=== PATIENT | female | born 1950 | race Caucasian/White ===

== ENCOUNTER 2017-10-04 06:13 | Inpatient (IN) ==
[2017-10-04] MEDS ORDERED: Lidocaine -MPF 2% 2 ML VIAL ONE (06:55)
[2017-10-04] MEDS ORDERED: Dexamethasone 4 MG/ML VIAL ONE (06:55)
[2017-10-04] MEDS ORDERED: *HR* Succinylcholine 200 MG/10 ML VIAL IVP ONE (06:55)
[2017-10-04] MEDS ORDERED: Lidocaine -MPF 4% 5 ML AMPUL ONE (06:55)
[2017-10-04] MEDS ORDERED: Ondansetron 4 MG/2 ML VIAL ONE (06:55)
[2017-10-04] MEDS ORDERED: *HR* FentaNYL (PF) 100 MCG/2 ML VIAL ONE ×2 (07:00→08:17)
[2017-10-04] MEDS ORDERED: *HR* Propofol 200 MG/20 ML VIAL IVP ONE (07:00)
[2017-10-04] MEDS ORDERED: *HR* Midazolam HCl 2 MG/2 ML VIAL ONE (07:00)
--- NOTE | 2017-10-04 07:04 | Urology History & Physical ---
Date of Encounter: 10/04/17 Time of Encounter: 07:02 Assessment and Plan (1) Uterine prolapse Current Visit: Yes Status: Acute proceed with planned case. all questions answered. History of Present Illness Chief complaint: prolapse HPI: Ms. Aponte is a 67 year old female here for hyst and ASCP. no change in condition. Past Med Surg Social Fam HX - Past Medical History Additional medical history: hematuria. Uterine prolapse - Past Surgical History Additional surgical history: gallbladder 2016. T&A. addendectomy. exploraratory. laser eye sx - Social History Smoking Status: Unknown if ever smoked Medications and Allergies 3 Allergy/AdvReac Type Severity Reaction Status Date / Time No Known Allergies Allergy Unverified 09/27/17 08:53 Review of Systems - Constitutional no fever(s) Exam Initial Vital Signs Temp Pulse Resp BP Pulse Ox 97.9 F 86 18 139/84 95 10/04/17 06:40 10/04/17 06:40 10/04/17 06:40 10/04/17 06:40 10/04/17 06:40 - General physical appearance Present: well developed, no distress - Neurologic Absent: disoriented, confused Urology Results - Labs All other labs normal.
[2017-10-04] MEDS ORDERED: LIDOCAINE 1% PF 2 ML AMPUL ONE (07:06)
[2017-10-04] MEDS ORDERED: CeFAZolin Syr 2,000MG/20 ML 2,000 MG/20 ML SYRINGE IVPB ONE (07:09)
[2017-10-04] MEDS ORDERED: Albuterol 2.5 MG/3 ML NEBULIZER IH ONE (07:10)
[2017-10-04] MEDS ORDERED: Albuterol 2.5 MG/3 ML NEBULIZER ONE (07:12)
[2017-10-04] MEDS ORDERED: Ringers Solution, Lactated 1,000 ML IVC SCH (07:15)
[2017-10-04] MEDS ORDERED: Scopolamine Patch 1.5 MG PATCH.TD72 TD ONE (07:27)
[2017-10-04] MEDS ORDERED: Acetaminophen IV 1,000 MG/100 ML INFUS..BTL ONE (07:34)
--- NOTE | 2017-10-04 07:39 | Anesthesia Evaluation PreOp ---
Date of Encounter: 10/04/17 Time of Encounter: 07:36 - Past History Planned Operation: Abd Supracervical Hysterectomy, ayden SPO, sacrocolpopexy Cardiac History: Denies any Significant Hx Pulmonary History: Asthma HORSE RACE STARTER History: Denies Any Significant HX Other Medical History: GERD (mild) Anesthesia History: Problems (PONV - responds to scop patch) Alcohol Use: none Drug use: none Medications and Allergies No Known Home Drugs 10/04/17 [History] 3 Allergy/AdvReac Type Severity Reaction Status Date / Time No Known Allergies Allergy Unverified 09/27/17 08:53 - Meds/Allergy Pre-op Review Medications Reviewed: Yes Allergies Reviewed: Yes Beta Blockers on Current Med List: No Anesthesia Results - Labs Laboratory Tests 09/27/17 09:00 WBC 8.2 Hgb 13.8 Hct 41.9 Plt Count 224 Anesthesia Exam Last Vital Signs Temp 97.9 F 10/04/17 06:40 Pulse 86 10/04/17 06:40 Resp 18 10/04/17 07:19 BP 139/84 10/04/17 07:19 Pulse Ox 95 10/04/17 07:19 Weight: 63 kg NPO (# of Hours): > 8 hrs - HEENT Pupil (Motor): Pupils equal, EOMI Mallampati: II Teeth: Normal Oral Opening: Greater than 3 - HORSE RACE STARTER LOC: Oriented - Cardiac Rhythm: Regular Murmur: None - Pulmonary Breath Sounds: bilateral Clear Respiratory Effort: Symmetrical Anesthesia Assess/Plan ASA Score: 3 Modified Whittemore Scale for Level of Consciousness: Cooperative, oriented, and tranquil Anesthetic Plan: General Monitoring Plan: Standard Monitors Recovery Plan: PACU
--- NOTE | 2017-10-04 07:41 | History & Physical Report ---
Date of Encounter: 10/04/17 Time of Encounter: 07:40 24 Hour HP Update - Instructions Instructions: If the History and Physical is less than 30 days old and was completed prior to A.M. admission and or procedure and has NOT been updated on calendar day of procedure please complete this update prior to performing procedure. - Update Patient reports changes in Medical Condition: No Changes in examination, assessment, or condition: No Changes in Medication: No Preop tests/diagnostics Reviewed: Yes Surgery Remains Indicated: Yes Consent for Planned Operative Procedure(s) Verified: Yes - Pre-Operative Checklist Preoperative Checklist Indicated: Yes Prophylactic Antibiotic Ordered: Yes Home Medications Include Beta Darlyn: No Beta Darlyn Taken Today (Day of Surgery): No Beta Darlyn Taken Yesterday (Day Prior to Surgery): No Is VTE Prophylaxis Indicated?: Yes
[2017-10-04] MEDS ORDERED: *HR* Labetalol 100 MG/20 ML MDV IVP PRN (08:38)
[2017-10-04] MEDS ORDERED: *HR* OxyCODONE Immed Rel 5 MG TABLET PO PRN (08:38)
[2017-10-04] MEDS ORDERED: *HR* Meperidine 25 MG/ML SYRINGE IVP PRN (08:38)
[2017-10-04] MEDS ORDERED: MORPHINE SUL Oral CONC 10 MG/0.5 ML ORAL.SYG SL PRN (08:38)
[2017-10-04] MEDS ORDERED: *HR* Promethazine 25 MG/ML VIAL IVP PRN (08:38)
[2017-10-04] MEDS ORDERED: Ondansetron 4 MG/2 ML VIAL IVP ONE (08:38)
[2017-10-04] MEDS ORDERED: EPHEDrine 50 MG/ML VIAL ONE (08:54)
[2017-10-04] MEDS ORDERED: *HR* PHENYLEPHRINE 1,000 MCG/10 ML SYRINGE IVP ONE (08:54)
[2017-10-04] MEDS ORDERED: Ketorolac 30 MG/ML VIAL ONE (09:08)
[2017-10-04] MEDS ORDERED: Neostigmine Methylsulfate 3 MG/3 ML SYRINGE ONE (09:44)
--- NOTE | 2017-10-04 09:50 | OB/GYN Procedure Note ---
Hysterectomy - Diagnosis Date of procedure: 10/04/17 Hysterectomy pre-op: symptomatic prolapse Post-op diagnosis: same - Procedure Hysterectomy procedure: other, bilateral salpingectomy Surgeon: Froy Benedict Was there an farm assistant present: Yes Continuous Crusher Operator: Amaya Knutson Anesthesia Type: General Estimated blood loss (cc): 100 Fluids: crystalloid Specimens: uterus, right fallopian tube, left fallopian tube Findings: Small atrophic uterus, fallopian tubes, ovaries Disposition: other (At completion of my procedure Dr. Reyes began with the sacral colpopexy) Narrative: Patient's a 67-year-old female referred by Dr. Talon Reyes for hysterectomy. She does have pelvic prolapse and he plane sacrocolpopexy. After discussed with patient options she did desire supracervical hysterectomy as well as bilateral salpingectomy. She very much desired ovarian preservation if they appeared normal. She was aware that she was menopausal now with risk for malignant change of the ovaries however she desired preservation. After informed of operative risks and the internal patient's questions she did signed appropriate consent. Description procedure: Patient was taken operating room where general anesthesia was administered. She is prepped draped in usual sterile fashion. Bladder was drained of clear urine with Currie catheter. Scalpel was used to make a vertical skin incision. This was sharply taken down the rectus fascia. Fascia was incised and fascial incision was extended superior and distally. Rectus muscle divided and peritoneum was entered bluntly. Peritoneal incision was extended superior and distally. O'Vicente-O'Narvaez self-retaining retractor was placed. Bowel packed all the operative field. Sacral promontory was noted. Uterus is small as were both fallopian tubes and ovaries. Georgette clamps were placed across the cornu of the uterus on each side. LigaSure was taken across the mesosalpinx freeing up the fallopian tubes on each side. LigaSure was then taken across the utero-ovarian ligament on each side and cauterization was performed was and then these pedicles were transected. LigaSure was taken across the round ligaments and each side these were cauterized and transected. LigaSure was then taken across the broad ligaments each side these 2 were cauterized and transected. Bladder flap was developed and lower uterine segment. Bovie was used to transect at the level of the internal cervical os. Oversewed the internal cervical os with 0 Vicryl in a running lock stitch. This point uterus both fallopian tubes were removed. This point hemostasis was ensured and Dr. Reyes took over his portion of procedure. Estimated blood loss more portion procedure was approximately 100 mL.
--- NOTE | 2017-10-04 12:03 | Anesthesia Evaluation Post Op ---
Date of Encounter: 10/04/17 Time of Encounter: 12:03 - Vital Signs Vital Signs: Last Vital Signs Temp 98.1 F 10/04/17 11:52 Pulse 73 10/04/17 11:52 Resp 16 10/04/17 11:52 BP 124/78 10/04/17 11:52 Pulse Ox 99 10/04/17 11:52 - Lungs Lungs: Clear Ascult./Percussion - Airway Airway: Non-obstructed - Cardiovascular Regular Rate - Mental Status Mental Status: Alert & Oriented, Answers Appropriately - Pain Pain Scale: 2 - Nausea Vomiting Nausea Vomiting: Not Present - Hydration Hydration: Ice chips, Currie catheter - Discharge PostOp Status: Transfer Patient to floor
[2017-10-04] MEDS ORDERED: Naloxone 0.4 MG/ML INJ IVP PRN (12:32)
[2017-10-04] MEDS ORDERED: Ondansetron 4 MG/2 ML VIAL IVP PRN (12:32)
[2017-10-04] MEDS ORDERED: *HR* HYDROcodone/Acet 5/325 mg TABLET PO PRN (12:32)
[2017-10-04] MEDS ORDERED: *HR* Belladonna Alkaloids/Opium 30 MG RECTAL SUPPOSITORY RC PRN (12:32)
[2017-10-04] MEDS ORDERED: Ketorolac 15 MG/ML VIAL IVP PRN (12:32)
[2017-10-04] MEDS ORDERED: 0.9 % Sodium Chloride 1,000 ML IVC SCH (12:32)
[2017-10-04] MEDS ORDERED: OXYCODONE Oral CONC 10 MG/0.5 ML ORAL.SYG SL PRN (12:32)
--- NOTE | 2017-10-04 13:27 | Operative Note ---
Date of procedure: 10/04/17 Pre-op diagnosis: uterine prolapse Post-op diagnosis: same Procedure: Abdominal sacral colpopexy Cystoscopy Anesthesia: GETA Surgeon: Bar Reyes Was there an surgical services assistant present: No Estimated blood loss (cc): 150 Specimen: none Condition: stable Disposition: PACU Procedure in Detail: When I entered the room the patient was in a modified low lithotomy position and draped using sterile technique. Currie catheter is in place. Retractor was in place with bowel packed superiorly. Sharp dissection using catie were used to dissect the bladder away from the anterior vagina along the vesicovaginal septum. No obvious bladder injury occurred during this step. Dissection continued posteriorly to the cervix to separate the vagina from the rectum along the rectovaginal septum. An EEA was in the vagina to aid in dissection and maneuverability of the vagina. The retroperitoneal space was then exposed by incising the posterior peritoneum from the level of the rectovaginal septum cranially to the sacral promontory. I identified the right ureter and was able to dissect this laterally to avoid injury or involvement with the case. A [employer] polypropylene graft was obtained and trimmed to size. eight 2-0 Prolene sutures were pre-placed. 4 were located on the anterior aspect of the vagina and cervix. 4 additional sutures were placed posterior on the cervix and as posterior as the dissection would allow. The 4 anterior sutures were secured to one arm of the polypropylene graft. The 4 posterior sutures were secured to the other arm. Excess mesh material was excised and it appeared the graft was well secured to the anterior and posterior aspect of the vagina. Two additional Prolene sutures were preplaced at the sacral promontory. These sutures were threaded through the graft to secure the third arm to the sacral promontory. The graft was positioned along the retroperitoneal space cranial to the sacral promontory. It was sized to allow for a tension-free approximation The peritoneal reflection was closed over the graft using a 2-0 Vicryl isolating the graft in a retroperitoneal location. A cystoscopy was performed. I carefully examined the entire bladder and noted no injury from the procedure. I first cannulated the right ureteral orifice with a 5 Romansh ureteral catheter. The passed without resistance up to what I felt was the level of the kidney. The same was repeated on the left side and no resistance was felt. The retractor and all packing were removed. Counts were confirmed to be correct 2. The rectus muscle was closed using a running 0 Vicryl suture. The fascia was closed with a #1 looped PDS. Favian's with a 2-0 Vicryl and the skin with 4- 0 Monocryl and Steri-Strips.
[2017-10-04] MEDS: CeFAZolin Pre 2,000 MG/100 ML 2,000 MG/100 ML BAG IVPB SCH ×2 (16:23→23:18)
[2017-10-05 05:23] LABS: BUN/Creatinine Ratio 13 (6-26); Blood Urea Nitrogen 10 mg/dL (8-23); Calcium 8.2 mg/dL (8.6-10.3); Carbon Dioxide 21 mEq/L (23-29); Chloride 110 mEq/L (98-107); Glucose 108 mg/dL (70-105); Osmolality,Calculated 288 (280-300); Potassium 3.9 mEq/L (3.5-5.1); Sodium 139 mEq/L (136-145); eGFR For African Americans > 60 (> 60); eGFR For Non-African Americans > 60 (> 60)
[2017-10-05 06:03] LABS: Basophils # 0.1 K/mcL (0.0-0.2); Basophils % 0.4 %; Eosinophils % 0.3 %; Hematocrit 34.3 % (35.3-44.9); Hemoglobin 11.2 g/dL (11.5-15.4); Immature Granulocytes % 0.4 % (0-4); Lymphocytes % 26.1 %; Mean Corpuscular HGB Conc 32.7 g/dL (31.6-35.5); Mean Corpuscular Hemoglobin 30.4 pg (28.0-33.3); Mean Platelet Volume 10.7 fL (9.4-12.4); Monocytes # 0.8 K/mcL (0.0-1.3); Monocytes % 7.3 %; Neutrophils # 7.6 K/mcL (1.6-8.9); Platelet Count 187 K/mcL (140-400); Red Blood Count 3.69 M/mcL (3.82-4.97); Segmented Neutrophils % 65.5 %
--- NOTE | 2017-10-05 07:53 | Urology Progress Note ---
Date of Encounter: 10/05/17 Time of Encounter: 07:52 - Assessment and Plan (1) Uterine prolapse Current Visit: Yes Status: Resolved Assessment and plan: ambulate. advance diet to regular. pierce out. possible discharge this afternoon. Progress Note Subjective: feels better, pain is less Narrative: ambulating. no nausea. pain controlled Objective Initial Vital Signs Temp Pulse Resp BP Pulse Ox 97.9 F 86 18 139/84 95 10/04/17 06:40 10/04/17 06:40 10/04/17 06:40 10/04/17 06:40 10/04/17 06:40 - General physical appearance Present: no distress - Additional Exam abd soft. incision dry intact. urine clear. - Labs 10/05/17 04:30 10/05/17 04:30 Diabetes panel 10/05/17 Range/Units 04:30 Sodium 139 (136-145) mEq/L Potassium 3.9 (3.5-5.1) mEq/L Chloride 110 H (98-107) mEq/L Carbon Dioxide 21 L (23-29) mEq/L BUN 10 (8-23) mg/dL Creatinine 0.80 (0.60-1.20) mg/dL Glucose 108 H (70-105) mg/dL Calcium 8.2 L (8.6-10.3) mg/dL Calcium panel 10/05/17 Range/Units 04:30 Calcium 8.2 L (8.6-10.3) mg/dL Pituitary panel 10/05/17 Range/Units 04:30 Sodium 139 (136-145) mEq/L Potassium 3.9 (3.5-5.1) mEq/L Chloride 110 H (98-107) mEq/L Carbon Dioxide 21 L (23-29) mEq/L BUN 10 (8-23) mg/dL Creatinine 0.80 (0.60-1.20) mg/dL Glucose 108 H (70-105) mg/dL Calcium 8.2 L (8.6-10.3) mg/dL Adrenal panel 10/05/17 Range/Units 04:30 Sodium 139 (136-145) mEq/L Potassium 3.9 (3.5-5.1) mEq/L Chloride 110 H (98-107) mEq/L Carbon Dioxide 21 L (23-29) mEq/L BUN 10 (8-23) mg/dL Creatinine 0.80 (0.60-1.20) mg/dL Glucose 108 H (70-105) mg/dL Calcium 8.2 L (8.6-10.3) mg/dL - VTE Documentation of Mechanical Device: Intermittent pneumatic compression device Consult Discharge Plan - Plan Referrals: Earnest Sanon DO [Primary Care Provider] -
--- NOTE | 2017-10-05 15:55 | Discharge Summary ---
Orders not resulted at time of discharge: Pending orders 10/04/17 09:19 Surgical Pathology [PTH] Routine 10/05/17 04:00 Complete Blood Count [HEME] AM 0400 10/06/17 04:00 Complete Blood Count [HEME] AM 0400 Date of Encounter: 10/05/17 Time of Encounter: 15:56 - Discharge Diagnosis (1) Uterine prolapse Priority: Primary Status: Resolved - Hospital Course Hospital course: Ms. Aponte is a 67 year old female POD#1 ASCP and hyst. doing great. labs OK. urinating well. vitals ok. ambulating and tolerating diet. ready for DC - Time Spent with Patient Total time spent providing and/or coordinating discharge services: Less than 30 minutes Labs on day of discharge: Labs from last 24 hours 10/05/17 10/05/17 04:30 04:30 WBC 11.6 H RBC 3.69 L Hgb 11.2 L Hct 34.3 L MCV 93.0 MCH 30.4 MCHC 32.7 RDW 14.0 Plt Count 187 MPV 10.7 Immature Gran % 0.4 Seg Neutrophils % 65.5 Lymphocytes % 26.1 Monocytes % 7.3 Eosinophils % 0.3 Basophils % 0.4 Neutrophils # 7.6 Lymphocytes # 3.0 Monocytes # 0.8 Eosinophils # 0.0 Basophils # 0.1 Sodium 139 Potassium 3.9 Chloride 110 H Carbon Dioxide 21 L BUN 10 Creatinine 0.80 Est GFR ( Amer) > 60 Est GFR (Non-Af Amer) > 60 BUN/Creatinine Ratio 13 Glucose 108 H Calculated Osmolality 288 Calcium 8.2 L - Discharge Medications Prescriptions: HYDROcodone/Acet 5/325 mg [[place] 5-325 mg] 1 tab PO Q4HR PRN 7 Days #20 tablet PRN Reason: Mild To Moderate Pain Home Medications: HYDROcodone/Acet 5/325 mg [[place] 5-325 mg] 1 tab PO Q4HR PRN 7 Days #20 tablet 10/05/17 [Rx] Allergies/Adverse Reactions: 3 Allergy/AdvReac Type Severity Reaction Status Date / Time No Known Allergies Allergy Unverified 09/27/17 08:53 Date of admission: 10/04/17 12:24 Primary care physician: Earnest Sanon Discharging clinician: Bar Reyes Anticipated date of discharge: 10/05/17 Exam Initial Vital Signs Temp Pulse Resp BP Pulse Ox 97.9 F 86 18 139/84 95 10/04/17 06:40 10/04/17 06:40 10/04/17 06:40 10/04/17 06:40 10/04/17 06:40 - General physical appearance Present: no distress - Patient Status Disposition: Home, Self-Care Condition: Good Functional capacity at discharge: independent ambulation Overall status at discharge: patient is progressing back to baseline - Discharge Instructions Follow Up With: Earnest Sanon DO [Primary Care Provider] - Bar Reyes MD [Partnered Physician] - (4 weeks) Additional Instructions: Okay to shower. No baths or swimming for at least 4 weeks No heavy activity, heavy lifting, straining for at least 4 weeks. No sexual intercourse for 6 weeks Nothing per vagina for 6 weeks Okay to use a pad for any vaginal drainage. Okay to keep incision open to air and not apply any antibiotic ointment Okay to use abdominal binder for comfort Use a stool softener if needed to prevent constipation Call if excessive abdominal pain, intractable nausea vomiting, fever over 101 degrees. Call with any other questions. OK to use ibuprofen 400 mg po TID PRN pain - Diet and Activity Activity: other Diet: advance to your usual diet - VTE Documentation of Mechanical Device: Intermittent pneumatic compression device
[2017-10-05 16:32] VITALS: BP 125/78
== END 2017-10-05 16:56 | disposition home or self-care (01) | DRG 743 ==
LOC: SAMDAY 06:13 → 1NENUOBS 12:24
PROVIDERS: ADMIT Obstetrics & Gynecology; ATTEND Obstetrics & Gynecology